=== PATIENT | male | born 1995 | race Two or more races ===

== ENCOUNTER 2020-06-12 22:28 | Emergency (ER) | payer OTHER ==
[~2020-06-12] VITALS: Ht 193 cm; Wt 100.0 kg
[2020-06-12] MEDS ORDERED: ACETAMINOPHEN 325 MG TABLET ONE (22:58)
[2020-06-12] MEDS ORDERED: ONDANSETRON 2MG/ML, 2ML ONE (22:58)
[2020-06-12] MEDS ORDERED: KETOROLAC 30 MG/1 ML ONE (22:58)
[2020-06-12] MEDS ORDERED: SODIUM CHLORIDE 0.9% 1,000ML IVBOLUS ONE (23:00)
[2020-06-12] MEDS ORDERED: KETOROLAC 30 MG/1 ML IVPush ONE (23:00)
[2020-06-12] MEDS ORDERED: ACETAMINOPHEN 325 MG TABLET PO ONE (23:00)
[2020-06-12] MEDS ORDERED: ONDANSETRON 2MG/ML, 2ML IVPush ONE (23:00)
[2020-06-12] MEDS ORDERED: PLEASE ENTER ALLERGIES MC SCH (23:00)
--- NOTE | 2020-06-12 23:00 | NUR ---
LATE ENTRY D/T PT CARE: PT VISITING [place] AND [place] TO BEGAN HAVING BODY ACHES, FEVER, CHILLS, HEADACHE, COUGH AND GENERALLY FEELING POOR. PT REPORTS HAVING COVID ONCE BEFORE AND THAT "THIS FEELS A LOT LIKE THAT TIME". PT PLACED ON SPO2/BP/ECG MONITORING AT THIS TIME. NAD, RESTING ON GURNEY, APPEARS COMFORTABLE, MEDICATED PER MAR. PT TACHY ON MONITOR, ALL OTHER VSS. SAGRARIO JACKSON AT BS FOR EVAL AND POC.
[2020-06-12 23:32] LABS: RAPID INFLUENZA A Negative (Negative); RAPID INFLUENZA B Negative (Negative)
[2020-06-12 23:36] LABS: ALBUMIN 4.2 g/dL (3.4-5.0); ANION GAP 7 mmol/L (5-15); CALCIUM 9.4 mg/dL (8.5-10.1); CHLORIDE 103 mmol/L (98-107); CREATININE 1.16 mg/dL (0.7-1.3)
[2020-06-12 23:41] LABS: BASOPHILS % (AUTO) 0 % (0-1); EOSINOPHILS % (AUTO) 0 % (1-7); LYMPHOCYTES % (AUTO) 5 % (22-44); MEAN CORPUSCULAR HGB CONC 34.2 g/dL (33.2-36.2); MEAN PLATELET VOLUME 9.6 fL (7.4-10.4); MONOCYTES % (AUTO) 5 % (2-9); NEUTROPHILS % (AUTO) 89 % (42-75); PLATELET COUNT 206 x10^3/uL (130-400); RED BLOOD COUNT 5.19 x10^6/uL (4.38-5.82); RED CELL DISTRIBUTION WIDTH 12.6 % (9.4-14.8)
--- NOTE | 2020-06-12 23:51 | NUR ---
PT RESTING ON TRENA, DAMARI, STATES HE IS FEELING SLIGHTLY BETTER, BED IN LOWEST, CALL LIGHT ON LAP, WCTM.
[2020-06-12 23:55] VITALS: BP 118/58
--- NOTE | 2020-06-12 23:56 | NUR ---
Patient given discharge instructions and they have confirmed that they understand the instructions. Patient ambulatory with steady gait. NAD, DENIES ADDITIONAL QUESTIONS OR NEEDS AT THIS TIME. NO PERSONAL BELONGINGS LEFT IN ROOM AFTER DC.
[2020-06-13 00:17] LABS: MD SCAN
== END 2020-06-13 00:17 | disposition home or self-care (01) ==
LOC: ED 06-13 00:07
DX: J06.9 Acute upper respiratory infection, unspecified (principal); R50.9 Fever, unspecified; Z20.822 Contact with and (suspected) exposure to COVID-19; R00.0 Tachycardia, unspecified; B34.9 Viral infection, unspecified; D72.829 Elevated white blood cell count, unspecified
CPT/HCPCS: 71045; 80048; 82040; 85025; 87040; 87400; 87635; 96361; 96374; 96375; 99284; J1885; J2405; J7030